=== PATIENT | female | born 1930 | race Caucasian/White ===

== ENCOUNTER 2017-08-01 15:57 | Inpatient (IN) | payer OTHER ==
[~2017-08-01] VITALS: Ht 157.5 cm; Wt 69.4 kg
[2017-08-01 16:00] VITALS: BP 151/72
[2017-08-01] MEDS ORDERED: TOPROL XL100 MG PO (16:04)
[2017-08-01 16:40] LABS: ABSOLUTE LYMPHOCYTES 1.7 thou/uL (0.8-5.3); BASOPHILS 0.2 %; EOSINOPHILS 0.3 %; HEMATOCRIT 44.4 % (37.0-47.0); HEMOGLOBIN 14.8 gm/dL (12.0-15.0); LYMPHOCYTES 11.4 %; MCH 29.1 pg (26.0-34.0); MCHC 33.3 g/dL (28.0-37.0); MCV 87.5 fL (80.0-100.0); MPV 8.8 fl. (7.2-11.1); NUCLEATED RBCS 0 /100WBC; PLATELET COUNT* 286 thou/uL (150-400); POLYS 81.1 %; RBC 5.08 mil/uL (4.20-5.00); RDW-CV 14.3 % (10.5-14.5); WBC 14.8 thou/uL (4.0-11.0)
[2017-08-01 16:51] LABS: ANION GAP 9 mmol/L (7-16); BUN 19 mg/dL (7-18); CALCIUM 9.8 mg/dL (8.5-10.1); CHLORIDE 105 mmol/L (98-107); CO2 30 mmol/L (21-32); CREATININE 1.2 mg/dL (0.6-1.3); GLUCOSE 162 mg/dL (70-99); POTASSIUM 4.1 mmol/L (3.5-5.1); SODIUM 144 mmol/L (136-145)
[2017-08-01 16:58] LABS: ALBUMIN 3.8 g/dL (3.4-5.0); ALKALINE PHOSPHATASE 89 U/L (46-116); LIPASE 230 U/L (73-393); SGOT 22 U/L (15-37); SGPT 31 U/L (30-65); TOTAL BILIRUBIN 0.5 mg/dL (<0.1-1.0); TOTAL PROTEIN 7.1 g/dL (6.4-8.2); TROPONIN-I LEVEL <0.06 ng/mL (<0.06)
[2017-08-01 17:02] LABS: URINE BLOOD NEGATIVE (Negative); URINE CLARITY CLEAR; URINE COLOR DARK YELLOW; URINE GLUCOSE-RANDOM NEGATIVE (Negative); URINE KETONES TRACE (Negative); URINE LEUKOCYTES-REFLEX 1+ (Negative); URINE PROTEIN 1+ (Negative); URINE SPECIFIC GRAVITY >= 1.030 (1.005-1.030)
[2017-08-01 17:03] LABS: ICTOTEST (BILI CONFIRMATORY) Negative (Negative); URINE BILIRUBIN 2+ (Negative); URINE NITRITE-REFLEX POSITIVE (Negative)
[2017-08-01 17:12] LABS: HYALINE CASTS >10 Many /LPF (None Seen); MUCUS 0-3 Light strn/LPF (None Seen); SQUAMOUS >10 Many /LPF (0-3)
[2017-08-01 17:13] LABS: URINE WBC-REFLEX >25 Many /HPF (0-5)
[2017-08-01 17:22] LABS: CRYSTALS None Seen /LPF (None Seen); URINE RBC 0-2 Rare /HPF (0-2)
[2017-08-01 20:34] VITALS: BP 113/89
[2017-08-01 21:15] VITALS: BP 113/66
[2017-08-02 00:47] VITALS: BP 93/41
[2017-08-02 04:07] VITALS: BP 119/55
[2017-08-02 05:05] LABS: HEMATOCRIT 39.9 % (37.0-47.0); HEMOGLOBIN 13.1 gm/dL (12.0-15.0); MCH 28.7 pg (26.0-34.0); MCHC 32.9 g/dL (28.0-37.0); MCV 87.4 fL (80.0-100.0); MPV 9.1 fl. (7.2-11.1); RBC 4.57 mil/uL (4.20-5.00); RDW-CV 14.4 % (10.5-14.5)
[2017-08-02] MEDS ORDERED: NORVASC10 MG PO (05:19)
[2017-08-02] MEDS ORDERED: MAXZIDE-25 MG1 EACH PO (05:21)
[2017-08-02 05:43] VITALS: BP 119/55
[2017-08-02 05:56] LABS: ALBUMIN 3.2 g/dL (3.4-5.0); CALCIUM 8.5 mg/dL (8.5-10.1); CREATININE 1.2 mg/dL (0.6-1.3); MAGNESIUM 2.1 mg/dL (1.8-2.4); POTASSIUM 4.3 mmol/L (3.5-5.1); TOTAL BILIRUBIN 0.6 mg/dL (<0.1-1.0); TOTAL PROTEIN 6.1 g/dL (6.4-8.2)
[2017-08-02 11:00] VITALS: BP 119/83
--- NOTE | 2017-08-02 12:24 | EKG ---
[place] [address] ELECTROCARDIOGRAM REPORT Name: BENI SALAMANCA Room: [address] ADM IN M.R.#: [id number] Admission: 08/01/17 Attend Phys: Gerardo Hilario, Discharge: Date of : [birth year] Report #: [id number] THIS REPORT FOR: //name// [facility] ED Test Date: 2017-08-01 Test Time: 16:13:52 Pat Name: BENI SALAMANCA Department: Room: [facility] Gender: F Fur Trapper: Kristie MILIAN : 1930 Requested By: Deonte Lopez Order Number: [id number] MD: Rocco Diaz Measurements Intervals Harrison Rate: 97 P: 29 GA: 175 QRS: -44 QRSD: 88 T: 49 QT: 372 QTc: 473 Interpretive Statements Sinus rhythm Left anterior fascicular block Left ventricular hypertrophy Compared to ECG 08/25/2006 11:05:36 Left anterior fascicular block now present Left ventricular hypertrophy now present T-wave abnormality no longer present Electronically Signed On 08-02-2017 12:24:19 PUBLICITY AGENT by Rocco Diaz [email or web address] <ELECTRONICALLY SIGNED> By: Rocco Diaz MD, FAC 08/02/17 1224 1613 1613 Rocco Diaz MD, [facility] /EPI
[2017-08-02 15:41] VITALS: BP 122/57
[2017-08-02 20:00] VITALS: BP 137/66
[2017-08-03] VITALS: BP 137/68
[2017-08-03 03:18] VITALS: BP 119/73
[2017-08-03 04:45] LABS: HEMATOCRIT 34.4 % (37.0-47.0); HEMOGLOBIN 11.5 gm/dL (12.0-15.0); MCH 29.4 pg (26.0-34.0); MCHC 33.5 g/dL (28.0-37.0); MCV 87.8 fL (80.0-100.0); MPV 9.1 fl. (7.2-11.1); RBC 3.91 mil/uL (4.20-5.00); RDW-CV 13.9 % (10.5-14.5); WBC 10.7 thou/uL (4.0-11.0)
[2017-08-03 05:06] LABS: CALCIUM 7.9 mg/dL (8.5-10.1); MAGNESIUM 1.8 mg/dL (1.8-2.4); POTASSIUM 3.8 mmol/L (3.5-5.1)
[2017-08-03 08:00] VITALS: BP 126/60
[2017-08-03 16:20] VITALS: BP 115/67
[2017-08-03 21:50] VITALS: BP 122/68
[2017-08-04 03:50] VITALS: BP 133/57
[2017-08-04 04:31] LABS: HEMOGLOBIN 10.5 gm/dL (12.0-15.0); MCH 28.8 pg (26.0-34.0); MCHC 32.8 g/dL (28.0-37.0); MCV 87.8 fL (80.0-100.0); MPV 9.2 fl. (7.2-11.1); RBC 3.65 mil/uL (4.20-5.00); RDW-CV 13.9 % (10.5-14.5); WBC 12.3 thou/uL (4.0-11.0)
[2017-08-04 04:47] LABS: CREATININE 0.8 mg/dL (0.6-1.3); MAGNESIUM 1.8 mg/dL (1.8-2.4); PHOSPHORUS* 2.7 mg/dL (2.5-4.9); POTASSIUM 3.9 mmol/L (3.5-5.1)
[2017-08-04 07:30] VITALS: BP 129/60; BP 183/70
--- NOTE | 2017-08-04 10:58 | S ---
[place] [address] SURGICAL PATH RPT PROCEDURE Name: JULIAN SALAMANCA Room: [address] IN [facility].#: [id number] Admission: 08/01/17 Date of : [birth year] Discharge: Report #: [id number] Path Case #: [id number] PATHOLOGY REPORT COLLECTION DATE: 08/02/2017 RECEIVED DATE: 08/03/2017 SUBMITTING PHYS: Dr. Sue Rocha OTHER PHYS: Dr. Gerardo Spann SPECIMEN(S) RECEIVED: A.Hernia sac * * * * * * * * * * * * FINAL DIAGNOSIS: Hernia sac: - Benign fibrofatty tissue. (RAFFI:r; 08/04/2017) PATHOLOGIST: Issac Lynn M.D. REPORT ELECTRONICALLY SIGNED BY: Issac Lynn M.D. DATE/TIME: 08/04/2017 10:57 * * * * * * * * * * * * GROSS PATHOLOGY: Received in formalin labeled "RichardJulian wilder Kathleen, hernia sac" and consists of glistening, yellow orange, lobulated, and slightly pink adipose tissue measuring 9.0 x 6.0 x 1.5 cm. One surface demonstrates a pink membrane. Sectioning reveals no obvious gross lesions. Hardwood Floor Sander sections are submitted as E1. (ANNAMARIE; 08/03/2017) CLINICAL HISTORY: Preop DX: Acute small bowel obstruction. Postop, BX: Right inguinal hernia INITIAL CPT CODE(S): A; 96032 Professional services performed by [facility] at [facility], [address] [place] [address], [place] [address]. Technical services performed by [facility] at [address] [place] [address], [facility] [address], [place] [address]. [facility] [address] [address] SURGICAL PATH RPT PROCEDURE Name: JULIAN SALAMANCA Room: [address] IN .R.#: [id number] Admission: 08/01/17 Date of : [birth year] Discharge: Report #: [id number] Path Case #: [id number] [address] PHONE: [phone] DIRECTOR: Nima Lozano M.D. * * * END OF REPORT * * *
[2017-08-04] MEDS ORDERED: ULTRAM 50MG TAB50 MG PO (11:01)
[2017-08-04 14:02] VITALS: BP 129/60
[2017-08-04] MEDS ORDERED: HYDROCODONE-AP1 EAC6 PO (14:02)
[2017-08-04] MEDS ORDERED: COLACE 100 MG100 MG PO (14:02)
[2017-08-04] MEDS ORDERED: CEFUROXIME250 MG PO (14:06)
[2017-08-04 14:45] VITALS: BP 129/60
[2017-08-04 18:47] VITALS: BP 129/60
--- NOTE | 2017-08-19 00:58 | OP ---
[address] [address] OPERATIVE REPORT Name: BENI SALAMANCA ELVIRA Room: [address]R#: [id number] Admission: 08/01/17 Attend Phys: Gerardo Hilario, Discharge: 08/04/17 Date of : [birth year] Report #: [id number] THIS REPORT FOR: //name// CC: Jonnie Hilario DICTATED BY: Vivian Adams DO DATE OF SERVICE: 08/02/2017 PREOPERATIVE DIAGNOSIS: Right inguinal hernia. POSTOPERATIVE DIAGNOSIS: Right direct and indirect inguinal hernia. SURGEONS: Sue Rocha MD and Vivian Adams, PGY5. LUMBER TRIPPER: None. PROCEDURE: Right inguinal hernia repair with mesh. ANESTHESIA: General endotracheal. BLOOD LOSS: 25 mL. SPECIMENS: Hernia sac. COMPLICATIONS: None. OPERATIVE DETAILS: After obtaining proper informed consent, the patient was brought to the operating room and laid supine on the operating table. She was given preoperative antibiotics and sedated and intubated under the benefit of general anesthesia. The right groin was prepped and draped in the usual sterile fashion and timeout was performed. Incision was made in the lower third of the line between ASIS and pubic tubercle and dissection of subcutaneous tissue was carried out with the use of cautery to the level of the external oblique fascia and again incision was made in the external oblique fascia. This was incised with a Metzenbaum scissor and dissected free of surrounding subcutaneous tissue. We were then able to isolate the hernia and the round ligament and reduced the indirect defect. Hernia sac was then dissected free and it was opened with Metzenbaum scissor and finger was placed in the hernia sac. It was opened further now proximally and inspected with no evidence of incarcerated bowel and ligation was then performed with 0 Vicryl and hernia sac was sent to pathology for further evaluation and now ligated edges hemostatic with the use of cautery. An 8 x [address] mesh was cut to size and secured to the pubic tubercle. It was then secured in a running fashion to the shelving edge of the inguinal ligament with an 0 Prolene and medially to the conjoined [place] [address] OPERATIVE REPORT Name: EBNI SALAMANCAHLEEN Room: [address] IN [facility].#: [id number] Admission: 08/01/17 Attend Phys: Gerardo Hilario, Discharge: 08/04/17 Date of : [birth year] Report #: [id number] completely secured and in good position, external oblique fascia was reapproximated over the mesh with 0 Vicryl suture. Local infiltration of 0.5% Marcaine was injected in the external oblique fascia and subcutaneous tissue surrounding the incision. Alli fascia was reapproximated with 3-0 Vicryl and skin was closed with 4-0 Monocryl, followed by Dermabond. All counts were correct at the end of the case. Drapes removed and the patient was awoken and brought to PACU in good condition for further recovery. Dr. Sue Rocha was present and scrubbed for the entire procedure. <ELECTRONICALLY SIGNED> By: Sue Rocha MD 08/19/17 0058 1025 1104Darcy Ashley Rocha MD /nt
== END 2017-08-04 15:30 | disposition home or self-care (01) | DRG 854 ==
LOC: M.ERS 15:57 → M.TBA-ER 18:11 → M.ORTHSURG 18:11
PROVIDERS: Emergency Medicine Emergency Medical Services; Surgery; ADMIT Family Medicine
PROC: 0YU50JZ Supplement Right Inguinal Region with Synthetic Substitute, Open Approach (ICD-10-PCS; principal; 2017-08-02)
DX: A41.9 Sepsis, unspecified organism (principal); K40.30 Unilateral inguinal hernia, with obstruction, without gangrene, not specified as recurrent; K56.609 Unspecified intestinal obstruction, unspecified as to partial versus complete obstruction; N10 Acute pyelonephritis; N39.0 Urinary tract infection, site not specified; I10 Essential (primary) hypertension; Z79.899 Other long term (current) drug therapy; K40.90 Unilateral inguinal hernia, without obstruction or gangrene, not specified as recurrent; D72.829 Elevated white blood cell count, unspecified; N81.4 Uterovaginal prolapse, unspecified; N95.2 Postmenopausal atrophic vaginitis; Z28.21 Immunization not carried out because of patient refusal